=== PATIENT | female | born 1935 | race Caucasian/White ===

== ENCOUNTER 2016-07-14 11:36 | Outpatient (RCR) | payer MEDICARE ==
--- OUTSIDE RECORDS SUMMARY | 2016-05-12 11:05 | XMS REPORT | Continuity of Care Document ---
Author Author [facility] Organization [facility] Address Unknown Phone Unavailable Allergies Active Description Code Type Severity Reaction Onset Reported/Identified Relationship to Patient Clinical Status Yes benazepril [id number] Drug Allergy Unknown N/A 12/21/2011 Medications Problems Date Dx Coded Attending Type Code Diagnosis Diagnosed By 12/25/2011 Ot 174.4 12/25/2011 Ot 196.3 12/25/2011 Ot 250.00 12/25/2011 Ot 425.4 12/25/2011 Ot V58.61 12/25/2011 Ot V58.69 04/12/2012 Ot 174.4 04/12/2012 Ot 196.3 04/12/2012 Ot 250.00 04/12/2012 Ot 425.4 04/12/2012 Ot V58.61 04/12/2012 Ot V58.69 04/12/2012 Ot V58.81 08/20/2012 Ot 174.4 08/20/2012 Ot 196.3 08/20/2012 Ot 250.00 08/20/2012 Ot 425.4 08/20/2012 Ot V58.61 08/20/2012 Ot V58.69 11/19/2012 ARIEL, BOBAN N Ot 174.4 11/19/2012 ARIEL, BOBAN N Ot 196.3 11/19/2012 ARIEL, BOBAN N Ot 250.00 11/19/2012 ARIEL, BOBAN N Ot 425.4 11/19/2012 ARIEL, BOBAN N Ot V58.61 11/19/2012 ARIEL, BOBAN N Ot V58.69 11/19/2012 ARIEL, BOBAN N Ot V58.81 02/20/2013 ARIEL, BOBAN N Ot 174.4 02/20/2013 ARIEL, BOBAN N Ot 196.3 02/20/2013 ARIEL, BOBAN N Ot 250.00 02/20/2013 ARIEL, BOBAN N Ot 425.4 02/20/2013 ARIEL, BOBAN N Ot V58.61 02/20/2013 ARIEL, BOBAN N Ot V58.69 02/20/2013 ARIEL, BOBAN N Ot V58.81 05/30/2013 ARIEL, BOBAN N Ot 174.4 05/30/2013 ARIEL, BOBAN N Ot 196.3 05/30/2013 ARIEL, BOBAN N Ot 250.00 05/30/2013 ARIEL, BOBAN N Ot 425.4 05/30/2013 ARIEL, BOBAN N Ot V58.61 05/30/2013 ARIEL, BOBAN N Ot V58.69 05/30/2013 ARIEL, BOBAN N Ot V58.81 10/02/2013 ARIEL, BOBAN N Ot 174.4 10/02/2013 ARIEL, BOBAN N Ot 196.3 10/02/2013 ARIEL, BOBAN N Ot 250.00 10/02/2013 ARIEL, BOBAN N Ot 425.4 10/02/2013 ARIEL, BOBAN N Ot V58.61 10/02/2013 ARIEL, BOBAN N Ot V58.69 10/02/2013 ARIEL, BOBAN N Ot V58.81 10/02/2013 ARIEL, BOBAN N Ot V58.83 02/20/2014 ARIEL, BOBAN N Ot 174.4 02/20/2014 ARIEL, BOBAN N Ot 196.3 02/20/2014 ARIEL, BOBAN N Ot 250.00 02/20/2014 ARIEL, BOBAN N Ot 425.4 02/20/2014 ARIEL, BOBAN N Ot V58.61 02/20/2014 ARIEL, BOBAN N Ot V58.69 02/20/2014 ARIEL, BOBAN N Ot V58.81 02/20/2014 ARIEL, BOBAN N Ot V58.83 03/11/2014 REAL CROCKER MODEL MAKING SUPERVISOR Ot 174.4 03/11/2014 REAL CROCKER MODEL MAKING SUPERVISOR Ot 196.3 03/11/2014 REAL CROCKER MODEL MAKING SUPERVISOR Ot 250.00 03/11/2014 REAL CROCKER MODEL MAKING SUPERVISOR Ot 425.4 03/11/2014 REAL CROCKER MODEL MAKING SUPERVISOR Ot V58.61 03/11/2014 REAL CROCKER MODEL MAKING SUPERVISOR Ot V58.69 03/11/2014 REAL CROCKER MODEL MAKING SUPERVISOR Ot V58.83 03/25/2014 ARIEL, BOBAN N Ot 174.4 03/25/2014 ARIEL, BOBAN N Ot 196.3 03/25/2014 ARIEL, BOBAN N Ot 250.00 03/25/2014 ARIEL, BOBAN N Ot 425.4 03/25/2014 ARIEL, BOBAN N Ot V58.61 03/25/2014 ARIEL, BOBAN N Ot V58.69 03/25/2014 ARIEL, BOBAN N Ot V58.83 03/25/2014 ARIEL, BOBAN N Ot 174.4 03/25/2014 ARIEL, BOBAN N Ot 196.3 03/25/2014 ARIEL, BOBAN N Ot 250.00 03/25/2014 ARIEL, BOBAN N Ot 425.4 03/25/2014 ARIEL, BOBAN N Ot V58.61 03/25/2014 ARIEL, BOBAN N Ot V58.69 03/25/2014 ARIEL, BOBAN N Ot V58.83 03/26/2014 ARIEL, BOBAN N Ot 174.4 03/26/2014 ARIEL, BOBAN N Ot 196.3 03/26/2014 ARIEL, BOBAN N Ot 250.00 03/26/2014 ARIEL, BOBAN N Ot 425.4 03/26/2014 ARIEL, BOBAN N Ot V58.61 03/26/2014 ARIEL, BOBAN N Ot V58.69 03/26/2014 ARIEL, BOBAN N Ot V58.83 03/26/2014 ARIEL, BOBAN N Ot 174.4 03/26/2014 ARIEL, BOBAN N Ot 196.3 03/26/2014 ARIEL, BOBAN N Ot 250.00 03/26/2014 ARIEL, BOBAN N Ot 425.4 03/26/2014 ARIEL, BOBAN N Ot V58.61 03/26/2014 ARIEL, BOBAN N Ot V58.69 03/26/2014 ARIEL, BOBAN N Ot V58.81 03/26/2014 ARIEL, BOBAN N Ot 174.4 03/26/2014 ARIEL, BOBAN N Ot 196.3 03/26/2014 ARIEL, BOBAN N Ot 250.00 03/26/2014 ARIEL, BOBAN N Ot 425.4 03/26/2014 ARIEL, BOBAN N Ot V58.61 03/26/2014 ARIEL, BOBAN N Ot V58.69 03/26/2014 ARIEL, BOBAN N Ot V58.81 05/16/2014 ARIEL, BOBAN N Ot 174.4 05/16/2014 ARIEL, BOBAN N Ot 196.3 05/16/2014 ARIEL, BOBAN N Ot 250.00 05/16/2014 ARIEL, BOBAN N Ot 425.4 05/16/2014 ARIEL, BOBAN N Ot V58.61 05/16/2014 ARIEL, BOBAN N Ot V58.69 05/16/2014 ARIEL, BOBAN N Ot V58.81 05/16/2014 ARIEL, BOBAN N Ot 174.4 05/16/2014 ARIEL, BOBAN N Ot 196.3 05/16/2014 ARIEL, BOBAN N Ot 250.00 05/16/2014 ARIEL, BOBAN N Ot 425.4 05/16/2014 ARIEL, BOBAN N Ot V58.61 05/16/2014 ARIEL, BOBAN N Ot V58.69 05/16/2014 ARIEL, BOBAN N Ot V58.81 06/23/2014 ARIEL, BOBAN N Ot 174.4 06/23/2014 ARIEL, BOBAN N Ot 196.3 06/23/2014 ARIEL, BOBAN N Ot 250.00 06/23/2014 ARIEL, BOBAN N Ot 425.4 06/23/2014 ARIEL, BOBAN N Ot V58.61 06/23/2014 ARIEL, BOBAN N Ot V58.69 06/23/2014 ARIEL, BOBAN N Ot V58.81 07/29/2014 ARIEL, BOBAN N Ot 174.4 07/29/2014 ARIEL, BOBAN N Ot 196.3 07/29/2014 ARIEL, BOBAN N Ot 250.00 07/29/2014 ARIEL, BOBAN N Ot 425.4 07/29/2014 ARIEL, BOBAN N Ot V58.61 07/29/2014 ARIEL, BOBAN N Ot V58.69 07/29/2014 ARIEL, BOBAN N Ot V58.81 07/29/2014 ARIEL, BOBAN N Ot 174.4 07/29/2014 ARIEL, BOBAN N Ot 196.3 07/29/2014 ARIEL, BOBAN N Ot 250.00 07/29/2014 ARIEL, BOBAN N Ot 425.4 07/29/2014 ARIEL, BOBAN N Ot V58.61 07/29/2014 ARIEL, BOBAN N Ot V58.69 07/29/2014 ARIEL, BOBAN N Ot V58.81 07/29/2014 ARIEL, BOBAN N Ot 174.4 07/29/2014 ARIEL, BOBAN N Ot 196.3 07/29/2014 ARIEL, BOBAN N Ot 250.00 07/29/2014 ARIEL, BOBAN N Ot 425.4 07/29/2014 ARIEL, BOBAN N Ot V58.61 07/29/2014 ARIEL, BOBAN N Ot V58.69 07/29/2014 ARIEL, BOBAN N Ot V58.81 07/29/2014 ARIEL, BOBAN N Ot 174.4 07/29/2014 ARIEL, BOBAN N Ot 196.3 07/29/2014 ARIEL, BOBAN N Ot 250.00 07/29/2014 ARIEL, BOBAN N Ot 425.4 07/29/2014 ARIEL, BOBAN N Ot V58.61 07/29/2014 ARIEL, BOBAN N Ot V58.69 07/29/2014 ARIEL, BOBAN N Ot V58.81 07/30/2014 ARIEL, BOBAN N Ot 174.4 07/30/2014 ARIEL, BOBAN N Ot 196.3 07/30/2014 ARIEL, BOBAN N Ot 250.00 07/30/2014 ARIEL, BOBAN N Ot 425.4 07/30/2014 ARIEL, BOBAN N Ot V58.61 07/30/2014 ARIEL, BOBAN N Ot V58.69 07/30/2014 ARIEL, BOBAN N Ot V58.81 08/30/2014 REAL CROCKER S MODEL MAKING SUPERVISOR Ot 174.4 08/30/2014 CROCKERREAL Oliveira S MODEL MAKING SUPERVISOR Ot 196.3 08/30/2014 CROCKERREAL Oliveira S MODEL MAKING SUPERVISOR Ot 250.00 08/30/2014 CROCKERREAL Oliveira S MODEL MAKING SUPERVISOR Ot 425.4 08/30/2014 CROCKERREAL Oliveira S MODEL MAKING SUPERVISOR Ot V58.61 08/30/2014 CROCKERREAL Oliveira S MODEL MAKING SUPERVISOR Ot V58.69 09/04/2014 CROCKERREAL Oliveira S MODEL MAKING SUPERVISOR Ot 174.4 09/04/2014 CROCKERREAL S MODEL MAKING SUPERVISOR Ot 196.3 09/04/2014 CROCKERREAL S MODEL MAKING SUPERVISOR Ot 250.00 09/04/2014 CROCKERREAL S MODEL MAKING SUPERVISOR Ot 425.4 09/04/2014 CROCKERREAL S MODEL MAKING SUPERVISOR Ot V58.61 09/04/2014 CROCKERREAL Oliveira S MODEL MAKING SUPERVISOR Ot V58.69 09/23/2014 ARIEL, BOBAN N Ot 174.4 09/23/2014 ARIEL, BOBAN N Ot 196.3 09/23/2014 ARIEL, BOBAN N Ot 250.00 09/23/2014 ARIEL, BOBAN N Ot 425.4 09/23/2014 ARIEL, BOBAN N Ot V58.61 09/23/2014 ARIEL, BOBAN N Ot V58.69 09/23/2014 ARIEL, BOBAN N Ot V58.81 09/26/2014 ARIEL, BOBAN N Ot 174.4 09/26/2014 ARIEL, BOBAN N Ot 196.3 09/26/2014 ARIEL, BOBAN N Ot 250.00 09/26/2014 ARIEL, BOBAN N Ot 425.4 09/26/2014 ARIEL, BOBAN N Ot V58.61 09/26/2014 ARIEL, BOBAN N Ot V58.69 09/26/2014 ARIEL, BOBAN N Ot V58.81 10/03/2014 CROCKERREAL Oliveira S MODEL MAKING SUPERVISOR Ot 174.4 10/03/2014 CROCKERREAL Oliveira S MODEL MAKING SUPERVISOR Ot 196.3 10/03/2014 CROCKERREAL S MODEL MAKING SUPERVISOR Ot 250.00 10/03/2014 CROCKERREAL S MODEL MAKING SUPERVISOR Ot 425.4 10/03/2014 CROCKERREAL S MODEL MAKING SUPERVISOR Ot V58.61 10/03/2014 CROCKERREAL S MODEL MAKING SUPERVISOR Ot V58.69 10/03/2014 CROCKERREAL S MODEL MAKING SUPERVISOR Ot V58.81 10/10/2014 CROCKERREAL S MODEL MAKING SUPERVISOR Ot 174.4 10/10/2014 CROCKERREAL S MODEL MAKING SUPERVISOR Ot 196.3 10/10/2014 CROCKERREAL Oliveira MODEL MAKING SUPERVISOR Ot 250.00 10/10/2014 CROCKERREAL S MODEL MAKING SUPERVISOR Ot 425.4 10/10/2014 CROCKERREAL S MODEL MAKING SUPERVISOR Ot V58.61 10/10/2014 CROCKERREAL S MODEL MAKING SUPERVISOR Ot V58.69 10/10/2014 CROCKERREAL S MODEL MAKING SUPERVISOR Ot V58.81 10/22/2014 CROCKERREAL S MODEL MAKING SUPERVISOR Ot 174.4 10/22/2014 CROCKERREAL S MODEL MAKING SUPERVISOR Ot 196.3 10/22/2014 CROCKERREAL S MODEL MAKING SUPERVISOR Ot 250.00 10/22/2014 CROCKERREAL S MODEL MAKING SUPERVISOR Ot 425.4 10/22/2014 CROCKERREAL S MODEL MAKING SUPERVISOR Ot V58.61 10/22/2014 CROCKERREAL S MODEL MAKING SUPERVISOR Ot V58.69 10/22/2014 CROCKERREAL Oliveira S MODEL MAKING SUPERVISOR Ot V58.81 10/27/2014 ARIEL, BOBAN N Ot 174.4 10/27/2014 ARIEL, BOBAN N Ot 196.3 10/27/2014 ARIEL, BOBAN N Ot 250.00 10/27/2014 ARIEL, BOBAN N Ot 425.4 10/27/2014 ARIEL, BOBAN N Ot V58.61 10/27/2014 ARIEL, BOBAN N Ot V58.69 10/27/2014 ARIEL, BOBAN N Ot V58.81 11/15/2014 CROCKERREAL Oliveira S MODEL MAKING SUPERVISOR Ot 174.4 11/15/2014 CROCKERREAL Oliveira S MODEL MAKING SUPERVISOR Ot 196.3 11/15/2014 CROCKERREAL Oliveira S MODEL MAKING SUPERVISOR Ot 250.00 11/15/2014 CROCKERREAL S MODEL MAKING SUPERVISOR Ot 425.4 11/15/2014 CROCKERREAL S MODEL MAKING SUPERVISOR Ot V58.61 11/15/2014 CROCKERREAL S MODEL MAKING SUPERVISOR Ot V58.69 11/15/2014 CROCKERREAL S MODEL MAKING SUPERVISOR Ot V58.81 11/21/2014 CROCKERREAL S MODEL MAKING SUPERVISOR Ot 174.4 11/21/2014 CROCKERREAL S MODEL MAKING SUPERVISOR Ot 196.3 11/21/2014 CROCKER REAL S MODEL MAKING SUPERVISOR Ot 250.00 11/21/2014 CROCKER, HILAH S MODEL MAKING SUPERVISOR Ot 425.4 11/21/2014 REAL CROCKER MODEL MAKING SUPERVISOR Ot V58.61 11/21/2014 REAL CROCKER MODEL MAKING SUPERVISOR Ot V58.69 11/21/2014 REAL CROCKERP Ot V58.81 12/03/2014 CAITLIN GEORGE N Ot 174.4 12/03/2014 CAITLIN GEORGE N Ot 196.3 12/03/2014 CAITLIN GEORGE N Ot 250.00 12/03/2014 CAITLIN GEORGE N Ot 425.4 12/03/2014 CAITLIN GEORGE N Ot V58.61 12/03/2014 CAITLIN GEORGE N Ot V58.69 12/03/2014 CAITLIN GEORGE N Ot V58.81 12/10/2014 Ot 174.9 12/10/2014 Ot V72.83 12/10/2014 Ot V74.8 12/10/2014 Ot 174.9 12/10/2014 Ot 174.9 12/10/2014 Ot 250.00 12/10/2014 Ot 272.0 12/10/2014 Ot 274.9 12/10/2014 Ot 401.9 12/10/2014 Ot 414.01 12/10/2014 Ot 428.0 12/10/2014 Ot 716.90 12/10/2014 Ot V45.82 12/10/2014 Ot V58.61 12/10/2014 Ot V58.69 12/10/2014 Ot 174.9 12/10/2014 Ot 733.90 12/10/2014 Ot V07.4 12/10/2014 Ot V49.81 12/10/2014 Ot V76.51 12/10/2014 REAL CROCKER MODEL MAKING SUPERVISOR Ot 174.4 12/10/2014 OBIREAL MODEL MAKING SUPERVISOR Ot 174.4 12/10/2014 OBIREAL MODEL MAKING SUPERVISOR Ot 196.3 12/10/2014 OBIREAL MODEL MAKING SUPERVISOR Ot 585.3 12/10/2014 OBIREAL MODEL MAKING SUPERVISOR Ot 733.90 12/10/2014 OBIREAL MODEL MAKING SUPERVISOR Ot V45.71 12/10/2014 OBIREAL MODEL MAKING SUPERVISOR Ot V58.69 12/10/2014 OBIREAL MODEL MAKING SUPERVISOR Ot V86.0 12/10/2014 OBI HILAH S MODEL MAKING SUPERVISOR Ot 174.4 12/10/2014 CROCKERREAL S MODEL MAKING SUPERVISOR Ot 196.3 12/10/2014 CROCKERREAL Oliveira S MODEL MAKING SUPERVISOR Ot 285.9 12/10/2014 CROCKERREAL Oliveira S MODEL MAKING SUPERVISOR Ot 733.90 12/10/2014 CROCKERREAL S MODEL MAKING SUPERVISOR Ot V45.71 12/10/2014 OBIREAL S MODEL MAKING SUPERVISOR Ot V58.69 12/10/2014 CROCKERREAL Oliveira S MODEL MAKING SUPERVISOR Ot V86.0 12/10/2014 CROCKERREAL S MODEL MAKING SUPERVISOR Ot 174.4 12/10/2014 CROCKERREAL S MODEL MAKING SUPERVISOR Ot 196.3 12/10/2014 OBIREAL S MODEL MAKING SUPERVISOR Ot 250.00 12/10/2014 OBIREAL S MODEL MAKING SUPERVISOR Ot 425.4 12/10/2014 OBIREAL S MODEL MAKING SUPERVISOR Ot V58.61 12/10/2014 OBIREAL S MODEL MAKING SUPERVISOR Ot V58.69 12/10/2014 OBIREAL S MODEL MAKING SUPERVISOR Ot V58.83 12/10/2014 CROCKERREAL Oliveira S MODEL MAKING SUPERVISOR Ot 174.4 12/10/2014 CROCKERMEIR S MODEL MAKING SUPERVISOR Ot 196.3 12/10/2014 CROCKERREAL Oliveira S MODEL MAKING SUPERVISOR Ot 250.00 12/10/2014 CROCKERREAL Oliveira S MODEL MAKING SUPERVISOR Ot 425.4 12/10/2014 CROCKERREAL S MODEL MAKING SUPERVISOR Ot V58.61 12/10/2014 OBIREAL S MODEL MAKING SUPERVISOR Ot V58.69 12/10/2014 CROCKERREAL S MODEL MAKING SUPERVISOR Ot 174.4 12/10/2014 CROCKERMEIR S MODEL MAKING SUPERVISOR Ot 196.3 12/10/2014 CROCKERMEIR S MODEL MAKING SUPERVISOR Ot 250.00 12/10/2014 OBIMEIR S MODEL MAKING SUPERVISOR Ot 425.4 12/10/2014 OBIREAL S MODEL MAKING SUPERVISOR Ot V58.61 12/10/2014 CROCKERMEIR S MODEL MAKING SUPERVISOR Ot V58.69 12/10/2014 OBIREAL S MODEL MAKING SUPERVISOR Ot V58.81 12/10/2014 OBI MEIR S MODEL MAKING SUPERVISOR Ot 174.4 12/10/2014 OBIMEIR S MODEL MAKING SUPERVISOR Ot 196.3 12/10/2014 REAL CROCKER MODEL MAKING SUPERVISOR Ot 250.00 12/10/2014 REAL CROCKER MODEL MAKING SUPERVISOR Ot 425.4 12/10/2014 REAL CROCKER S MODEL MAKING SUPERVISOR Ot V58.61 12/10/2014 CROCKERREAL Oliveira S MODEL MAKING SUPERVISOR Ot V58.69 12/10/2014 REAL CROCKER MODEL MAKING SUPERVISOR Ot V58.81 12/10/2014 ARIEL, BOBAN N Ot 174.4 12/10/2014 ARIEL, BOBAN N Ot 196.3 12/10/2014 ARIEL, BOBAN N Ot 250.00 12/10/2014 ARIEL, BOBAN N Ot 425.4 12/10/2014 ARIEL, BOBAN N Ot V58.61 12/10/2014 ARIEL, BOBAN N Ot V58.69 12/10/2014 ARIEL, BOBAN N Ot V58.81 12/18/2014 ARIEL, BOBAN N Ot 174.4 12/18/2014 ARIEL, BOBAN N Ot 196.3 12/18/2014 ARIEL, BOBAN N Ot 250.00 12/18/2014 ARIEL, BOBAN N Ot 425.4 12/18/2014 ARIEL, BOBAN N Ot V58.61 12/18/2014 ARIEL, BOBAN N Ot V58.69 12/18/2014 ARIEL, BOBAN N Ot V58.81 02/17/2015 ARIEL, BOBAN N Ot 174.4 02/17/2015 ARIEL, BOBAN N Ot 196.3 02/17/2015 ARIEL, BOBAN N Ot 250.00 02/17/2015 ARIEL, BOBAN N Ot 425.4 02/17/2015 ARIEL, BOBAN N Ot V58.61 02/17/2015 ARIEL, BOBAN N Ot V58.69 02/17/2015 ARIEL, BOBAN N Ot V58.81 03/07/2015 ARIEL, BOBAN N Ot C50.419 03/07/2015 ARIEL, BOBAN N Ot Z79.01 03/07/2015 ARIEL, BOBAN N Ot Z79.899 03/12/2015 ARIEL, BOBAN N Ot C50.419 03/12/2015 ARIEL, BOBAN N Ot Z79.01 03/12/2015 CAITLIN GEORGE Ot Z79.899 04/14/2015 CAITLIN GEORGE Ot C50.419 04/14/2015 CAITLIN GEORGE Ot Z45.2 04/14/2015 CAITLIN GEORGE Ot Z79.01 04/14/2015 CAITLIN GEORGE Ot Z79.899 05/29/2015 Ot 250.00 05/29/2015 Ot 272.4 05/29/2015 Ot 402.90 05/29/2015 Ot 425.4 05/29/2015 Ot 426.3 05/29/2015 Ot 427.31 05/29/2015 Ot 715.36 05/29/2015 Ot 717.3 05/29/2015 Ot 793.1 05/29/2015 Ot V58.69 05/29/2015 Ot V72.81 05/29/2015 Ot V72.83 05/29/2015 CAITLIN GEORGE Ot C50.419 05/29/2015 CAITLIN GEORGE Ot Z79.01 05/29/2015 CAITLIN GEORGE Ot Z79.899 05/29/2015 Ot 174.9 05/29/2015 Ot V72.83 05/29/2015 Ot V74.8 05/29/2015 Ot 174.9 05/29/2015 Ot 174.9 05/29/2015 Ot 250.00 05/29/2015 Ot 272.0 05/29/2015 Ot 274.9 05/29/2015 Ot 401.9 05/29/2015 Ot 414.01 05/29/2015 Ot 428.0 05/29/2015 Ot 716.90 05/29/2015 Ot V45.82 05/29/2015 Ot V58.61 05/29/2015 Ot V58.69 05/29/2015 Ot 174.9 05/29/2015 Ot 733.90 05/29/2015 Ot V07.4 05/29/2015 Ot V49.81 05/29/2015 Ot V76.51 05/29/2015 REAL CROCKER MODEL MAKING SUPERVISOR Ot 174.4 05/29/2015 REAL CROCKER MODEL MAKING SUPERVISOR Ot 174.4 05/29/2015 REAL CROCKER MODEL MAKING SUPERVISOR Ot 196.3 05/29/2015 REAL CROCKER MODEL MAKING SUPERVISOR Ot 585.3 05/29/2015 REAL CROCKER S MODEL MAKING SUPERVISOR Ot 733.90 05/29/2015 CROCKERREAL Oliveira S MODEL MAKING SUPERVISOR Ot V45.71 05/29/2015 CROCKERREAL S MODEL MAKING SUPERVISOR Ot V58.69 05/29/2015 CROCKERREAL Oliveira S MODEL MAKING SUPERVISOR Ot V86.0 05/29/2015 CROCKERREAL S MODEL MAKING SUPERVISOR Ot 174.4 05/29/2015 CROCKERREAL S MODEL MAKING SUPERVISOR Ot 196.3 05/29/2015 CROCKERREAL S MODEL MAKING SUPERVISOR Ot 285.9 05/29/2015 CROCKERREAL S MODEL MAKING SUPERVISOR Ot 733.90 05/29/2015 CROCKERREAL Oliveira S MODEL MAKING SUPERVISOR Ot V45.71 05/29/2015 CROCKERREAL Oliveira S MODEL MAKING SUPERVISOR Ot V58.69 05/29/2015 CROCKERREAL Oliveira S MODEL MAKING SUPERVISOR Ot V86.0 05/29/2015 CROCKERREAL Oliveira S MODEL MAKING SUPERVISOR Ot 174.4 05/29/2015 CROCKERREAL Oliveira S MODEL MAKING SUPERVISOR Ot 196.3 05/29/2015 CROCKERREAL Oliveira S MODEL MAKING SUPERVISOR Ot 250.00 05/29/2015 CROCKERREAL Oliveira S MODEL MAKING SUPERVISOR Ot 425.4 05/29/2015 CROCKERREAL Oliveira S MODEL MAKING SUPERVISOR Ot V58.61 05/29/2015 CROCKERREAL S MODEL MAKING SUPERVISOR Ot V58.69 05/29/2015 CROCKERREAL S MODEL MAKING SUPERVISOR Ot V58.83 05/29/2015 CROCKERREAL Oliveira S MODEL MAKING SUPERVISOR Ot 174.4 05/29/2015 CROCKERREAL Oliveira S MODEL MAKING SUPERVISOR Ot 196.3 05/29/2015 CROCKER, HIL S MODEL MAKING SUPERVISOR Ot 250.00 05/29/2015 CROCKERMEIR S MODEL MAKING SUPERVISOR Ot 425.4 05/29/[address] [facility] S MODEL MAKING SUPERVISOR Ot V58.61 05/29/2015 CROCKERMEIR S MODEL MAKING SUPERVISOR Ot V58.69 05/29/2015 CROCKERMEIR S MODEL MAKING SUPERVISOR Ot 174.4 05/29/2015 CROCKERREAL S MODEL MAKING SUPERVISOR Ot 196.3 05/29/2015 CROCKER, MEIR S MODEL MAKING SUPERVISOR Ot 250.00 05/29/2015 CROCKER, MEIR S MODEL MAKING SUPERVISOR Ot 425.4 05/29/2015 CROCKER, HILAH S MODEL MAKING SUPERVISOR Ot V58.61 05/29/2015 REAL CROCKER MODEL MAKING SUPERVISOR Ot V58.69 05/29/2015 REAL CROCKER MODEL MAKING SUPERVISOR Ot V58.81 05/29/2015 REAL CROCKER MODEL MAKING SUPERVISOR Ot 174.4 05/29/2015 REAL CROCKER MODEL MAKING SUPERVISOR Ot 196.3 05/29/2015 REAL CROCKER MODEL MAKING SUPERVISOR Ot 250.00 05/29/2015 REAL CROCKER MODEL MAKING SUPERVISOR Ot 425.4 05/29/2015 REAL CROCKER MODEL MAKING SUPERVISOR Ot V58.61 05/29/2015 REAL CROCKER MODEL MAKING SUPERVISOR Ot V58.69 05/29/2015 REAL CROCKER MODEL MAKING SUPERVISOR Ot V58.81 05/29/2015 ARIEL, BOBAN N Ot C50.419 05/29/2015 ARIEL, BOBAN N Ot Z79.01 05/29/2015 ARIEL, BOBAN N Ot Z79.899 06/12/2015 ARIEL BOBAN N Ot C50.419 06/12/2015 ARIEL, BOBAN N Ot Z79.01 06/12/2015 ARIEL, BOBAN N Ot Z79.899 06/12/2015 ARIEL BOBAN N Ot C50.419 06/12/2015 ARIEL, BOBAN N Ot Z79.01 06/12/2015 ARIEL, BOBAN N Ot Z79.899 Procedures Results Encounters ACCT No. Visit Date/Time Discharge Status Pt. Type Provider Facility Loc./Unit Complaint [id number] 03/03/2015 09:03:00 2015 00:01:00 DIS Outpatient CAITLIN GEORGE N [facility] ON[facility] [id number] 12/02/2014 15:00:00 2014 00:01:00 DIS Outpatient ARIELCAITLIN N [facility] ONC [id number] 10/21/2014 12:41:00 2014 00:01:00 DIS Outpatient SILVIA GEORGENAM N [facility] ONC [id number] 10/21/2014 12:42:00 2014 23:59:59 CLS Outpatient REAL CROCKER MODEL MAKING SUPERVISOR [facility] ONC [id number] 09/09/2014 10:51:00 2014 23:59:59 CLS Outpatient REAL CROCKER MODEL MAKING SUPERVISOR [facility] ONC [id number] 07/29/2014 11:02:00 2014 23:59:59 CLS Outpatient REAL CROCKER S MODEL MAKING SUPERVISOR [facility] ONC [id number] 05/09/2014 12:00:00 2014 00:01:00 DIS Outpatient CAITLIN GEORGE [facility] ONC [id number] 12/31/2013 14:05:00 2013 00:01:00 DIS Outpatient CAITLIN GEORGE [facility] ONC [id number] 02/11/2014 13:22:00 2013 23:59:59 CLS Outpatient REAL CROCKER S MODEL MAKING SUPERVISOR [facility] ONC [id number] 08/15/2013 12:48:00 2013 00:01:00 DIS Outpatient CAITLIN GEORGE [facility] ONC [id number] 08/15/2013 12:48:00 2013 23:59:59 CLS Outpatient REAL CROCKER MODEL MAKING SUPERVISOR [facility] ONC [id number] 05/23/2013 10:44:00 2013 00:01:00 DIS Outpatient CAITLIN GEORGE [facility] ONC [id number] 03/01/2013 10:48:00 2012 23:59:59 CLS Outpatient REAL CROCKER S MODEL MAKING SUPERVISOR [facility] ONC [id number] 01/10/2013 13:38:00 2012 00:01:00 DIS Outpatient CAITLIN GEORGE [facility] ONC [id number] 10/05/2012 13:51:00 2012 00:01:00 DIS Outpatient CAITLIN GEORGE [facility] ON[facility] [id number] 08/21/2012 13:12:00 2012 23:59:59 CLS Outpatient REAL CROCKER [facility] ONC [id number] 04/15/2015 00:08:00 PEN Preadmit CAITLIN GEORGE [facility] ONC [id number] 12/10/2014 15:19:00 Document Registration [id number] 12/10/2014 15:19:00 Document Registration [id number] 04/12/2012 13:58:00 Document Registration [id number] 02/25/2012 08:34:00 Document Registration [id number] 12/24/2011 05:55:00 Document Registration [id number] 12/21/2011 10:21:00 Document Registration [id number] 12/20/2011 13:00:00 Document Registration [id number] 06/16/2005 15:00:00 Document Registration
[2016-06-16 09:43] LABS: BASOPHILS % (AUTO) 1 % (0-10); EOSINOPHILS # (AUTO) 0.3 10^3/uL (0.0-0.3); EOSINOPHILS % (AUTO) 4 % (0-10); LYMPHOCYTES # (AUTO) 1.4 X 10^3 (1.0-4.0); LYMPHOCYTES % (AUTO) 18 % (12-44); MEAN CORPUSCULAR HEMOGLOBIN 28 PG (25-34); MEAN CORPUSCULAR HGB CONC 33 G/DL (32-36); MEAN CORPUSCULAR VOLUME 87 FL (80-99); MEAN PLATELET VOLUME 11.5 FL (7.4-10.4); MONOCYTES # (AUTO) 0.4 X 10^3 (0.0-1.0); MONOCYTES % (AUTO) 5 % (0-12); NEUTROPHILS # (AUTO) 5.6 X 10^3 (1.8-7.8); NEUTROPHILS % (AUTO) 73 % (42-75); PLATELET COUNT 166 10^3/uL (130-400); RED BLOOD COUNT 4.13 10^6/uL (4.35-5.85); RED CELL DISTRIBUTION WIDTH 15.5 % (10.0-14.5); WHITE BLOOD COUNT 7.7 10^3/uL (4.3-11.0)
[2016-06-16 10:08] LABS: ALBUMIN 3.9 G/DL (3.2-4.5); BILIRUBIN,TOTAL 0.5 MG/DL (0.1-1.0); CALCIUM 9.4 MG/DL (8.5-10.1); CREATININE SERUM 1.3 MG/DL (0.60-1.30); TOTAL PROTEIN 6.7 G/DL (6.4-8.2)
[~2016-07-14 11:36] MED LIST: ASP81TEC PO; CARV3.122 PO; FENO54TA PO; FURO40TA4 PO; GLIM1TAB PO; HYDR-3583 PO; LOSA50TA6 PO; MULT-856 PO; OMG1KC PO; POTA10CA43 PO; SIMV40TA4 PO; SITA1TBM PO; WARF4TAB PO
== END 2016-08-10 | disposition home or self-care (01) ==
LOC: ONC 11:36
PROVIDERS: ATTEND Internal Medicine Hematology & Oncology
DX: Z08 Encounter for follow-up examination after completed treatment for malignant neoplasm (principal); Z85.3 Personal history of malignant neoplasm of breast; M85.80 Other specified disorders of bone density and structure, unspecified site; I13.0 Hypertensive heart and chronic kidney disease with heart failure and stage 1 through stage 4 chronic kidney disease, or unspecified chronic kidney disease; I50.9 Heart failure, unspecified; N18.3 Chronic kidney disease, stage 3 (moderate); E11.22 Type 2 diabetes mellitus with diabetic chronic kidney disease; I25.10 Atherosclerotic heart disease of native coronary artery without angina pectoris; E78.00 Pure hypercholesterolemia, unspecified; E66.01 Morbid (severe) obesity due to excess calories; Z68.34 Body mass index [BMI] 34.0-34.9, adult; Z45.2 Encounter for adjustment and management of vascular access device; Z79.01 Long term (current) use of anticoagulants; Z79.4 Long term (current) use of insulin
CPT/HCPCS: 36415; 80053; 82306; 85025; 96523; 99213

== ENCOUNTER 2016-11-03 12:24 | Outpatient (RCR) | payer MEDICARE ==
[2016-08-11 10:21] LABS: BASOPHILS # (AUTO) 0.1 10^3/uL (0.0-0.1); BASOPHILS % (AUTO) 1 % (0-10); EOSINOPHILS # (AUTO) 0.3 10^3/uL (0.0-0.3); EOSINOPHILS % (AUTO) 4 % (0-10); LYMPHOCYTES # (AUTO) 1.4 X 10^3 (1.0-4.0); LYMPHOCYTES % (AUTO) 16 % (12-44); MEAN CORPUSCULAR HEMOGLOBIN 28 PG (25-34); MEAN CORPUSCULAR HGB CONC 32 G/DL (32-36); MEAN CORPUSCULAR VOLUME 88 FL (80-99); MEAN PLATELET VOLUME 11.8 FL (7.4-10.4); MONOCYTES # (AUTO) 0.8 X 10^3 (0.0-1.0); MONOCYTES % (AUTO) 9 % (0-12); NEUTROPHILS # (AUTO) 5.9 X 10^3 (1.8-7.8); NEUTROPHILS % (AUTO) 70 % (42-75); PLATELET COUNT 152 10^3/uL (130-400); RED BLOOD COUNT 4.14 10^6/uL (4.35-5.85); RED CELL DISTRIBUTION WIDTH 15.6 % (10.0-14.5); WHITE BLOOD COUNT 8.4 10^3/uL (4.3-11.0)
[2016-08-11 10:41] LABS: ALBUMIN 4.1 G/DL (3.2-4.5); BILIRUBIN,TOTAL 0.6 MG/DL (0.1-1.0); CALCIUM 9.4 MG/DL (8.5-10.1); CREATININE SERUM 1.43 MG/DL (0.60-1.30); POTASSIUM 4.2 MMOL/L (3.6-5.0); TOTAL PROTEIN 7.2 G/DL (6.4-8.2)
[2016-11-03 13:20] LABS: BASOPHILS % (AUTO) 0 % (0-10); EOSINOPHILS # (AUTO) 0.3 10^3/uL (0.0-0.3); EOSINOPHILS % (AUTO) 4 % (0-10); LYMPHOCYTES # (AUTO) 1.2 X 10^3 (1.0-4.0); LYMPHOCYTES % (AUTO) 17 % (12-44); MEAN CORPUSCULAR HEMOGLOBIN 28 PG (25-34); MEAN CORPUSCULAR HGB CONC 32 G/DL (32-36); MEAN CORPUSCULAR VOLUME 88 FL (80-99); MEAN PLATELET VOLUME 11.3 FL (7.4-10.4); MONOCYTES # (AUTO) 0.8 X 10^3 (0.0-1.0); MONOCYTES % (AUTO) 11 % (0-12); NEUTROPHILS # (AUTO) 4.9 X 10^3 (1.8-7.8); NEUTROPHILS % (AUTO) 68 % (42-75); PLATELET COUNT 155 10^3/uL (130-400); RED BLOOD COUNT 3.79 10^6/uL (4.35-5.85); RED CELL DISTRIBUTION WIDTH 17.1 % (10.0-14.5); WHITE BLOOD COUNT 7.2 10^3/uL (4.3-11.0)
[2016-11-03 14:00] LABS: ALBUMIN 3.9 GM/DL (3.2-4.5); BILIRUBIN,TOTAL 0.8 MG/DL (0.1-1.0); CALCIUM 9.8 MG/DL (8.5-10.1); CREATININE SERUM 1.41 MG/DL (0.60-1.30); POTASSIUM 4.4 MMOL/L (3.6-5.0)
== END 2016-11-09 | disposition home or self-care (01) ==
LOC: ONC 12:24
PROVIDERS: ATTEND Internal Medicine Hematology & Oncology
DX: Z08 Encounter for follow-up examination after completed treatment for malignant neoplasm (principal); Z85.3 Personal history of malignant neoplasm of breast; Z79.899 Other long term (current) drug therapy; Z79.01 Long term (current) use of anticoagulants; Z45.2 Encounter for adjustment and management of vascular access device
CPT/HCPCS: 36591; 80053; 82728; 83540; 85025; 96523; 99213

== ENCOUNTER 2016-12-15 10:16 | Outpatient (RCR) | payer MEDICARE | END 2016-12-18 | disposition home or self-care (01) | LOC: ONC 10:16 | PROVIDERS: ATTEND Internal Medicine Hematology & Oncology | DX: Z08 Encounter for follow-up examination after completed treatment for malignant neoplasm (principal); Z85.3 Personal history of malignant neoplasm of breast; Z79.899 Other long term (current) drug therapy; Z79.01 Long term (current) use of anticoagulants; Z45.2 Encounter for adjustment and management of vascular access device | CPT/HCPCS: 96523 ==

== ENCOUNTER 2017-04-20 13:05 | Outpatient (RCR) | payer MEDICARE ==
[2017-04-20 13:36] LABS: BASOPHILS % (AUTO) 0 % (0-10); EOSINOPHILS # (AUTO) 0.3 10^3/uL (0.0-0.3); EOSINOPHILS % (AUTO) 4 % (0-10); HEMATOCRIT 33 % (35-52); HEMOGLOBIN 10.5 G/DL (11.5-16.0); LYMPHOCYTES # (AUTO) 1.2 X 10^3 (1.0-4.0); LYMPHOCYTES % (AUTO) 16 % (12-44); MEAN CORPUSCULAR HEMOGLOBIN 29 PG (25-34); MEAN CORPUSCULAR HGB CONC 32 G/DL (32-36); MEAN CORPUSCULAR VOLUME 88 FL (80-99); MEAN PLATELET VOLUME 11.9 FL (7.4-10.4); MONOCYTES # (AUTO) 0.7 X 10^3 (0.0-1.0); MONOCYTES % (AUTO) 10 % (0-12); NEUTROPHILS # (AUTO) 5.3 X 10^3 (1.8-7.8); NEUTROPHILS % (AUTO) 70 % (42-75); PLATELET COUNT 151 10^3/uL (130-400); RED BLOOD COUNT 3.68 10^6/uL (4.35-5.85); RED CELL DISTRIBUTION WIDTH 16.4 % (10.0-14.5); WHITE BLOOD COUNT 7.6 10^3/uL (4.3-11.0)
[2017-04-20 14:06] LABS: ALBUMIN 3.6 GM/DL (3.2-4.5); BILIRUBIN,TOTAL 0.6 MG/DL (0.1-1.0); CALCIUM 9.4 MG/DL (8.5-10.1); CREATININE SERUM 1.52 MG/DL (0.60-1.30); POTASSIUM 4.6 MMOL/L (3.6-5.0)
== END 2017-04-26 | disposition home or self-care (01) ==
LOC: ONC 13:05
PROVIDERS: ATTEND Internal Medicine Hematology & Oncology
DX: Z08 Encounter for follow-up examination after completed treatment for malignant neoplasm (principal); Z85.3 Personal history of malignant neoplasm of breast; Z79.899 Other long term (current) drug therapy; Z79.01 Long term (current) use of anticoagulants; Z45.2 Encounter for adjustment and management of vascular access device
CPT/HCPCS: 36591; 80053; 85025; 96523

== ENCOUNTER 2017-06-01 09:45 | Outpatient (RCR) | payer MEDICARE | END 2017-08-30 | disposition home or self-care (01) | LOC: ONC 09:45 | PROVIDERS: ATTEND Internal Medicine Hematology & Oncology | DX: Z08 Encounter for follow-up examination after completed treatment for malignant neoplasm (principal); Z85.3 Personal history of malignant neoplasm of breast; Z79.899 Other long term (current) drug therapy; Z79.01 Long term (current) use of anticoagulants; Z45.2 Encounter for adjustment and management of vascular access device | CPT/HCPCS: 96523 ==

== ENCOUNTER 2017-11-16 09:56 | Outpatient (RCR) | payer MEDICARE ==
[2017-11-16 10:29] LABS: BASOPHILS % (AUTO) 1 % (0-10); EOSINOPHILS # (AUTO) 0.4 10^3/uL (0.0-0.3); EOSINOPHILS % (AUTO) 6 % (0-10); HEMATOCRIT 30 % (35-52); HEMOGLOBIN 9.5 G/DL (11.5-16.0); LYMPHOCYTES # (AUTO) 1.1 X 10^3 (1.0-4.0); LYMPHOCYTES % (AUTO) 17 % (12-44); MEAN CORPUSCULAR HEMOGLOBIN 29 PG (25-34); MEAN CORPUSCULAR HGB CONC 32 G/DL (32-36); MEAN CORPUSCULAR VOLUME 90 FL (80-99); MEAN PLATELET VOLUME 11.5 FL (7.4-10.4); MONOCYTES # (AUTO) 0.6 X 10^3 (0.0-1.0); MONOCYTES % (AUTO) 8 % (0-12); NEUTROPHILS # (AUTO) 4.7 X 10^3 (1.8-7.8); NEUTROPHILS % (AUTO) 68 % (42-75); PLATELET COUNT 165 10^3/uL (130-400); RED BLOOD COUNT 3.33 10^6/uL (4.35-5.85); RED CELL DISTRIBUTION WIDTH 16.5 % (10.0-14.5); WHITE BLOOD COUNT 6.9 10^3/uL (4.3-11.0)
[2017-11-16 10:48] LABS: ALBUMIN 3.9 GM/DL (3.2-4.5); BILIRUBIN,TOTAL 0.6 MG/DL (0.1-1.0); CALCIUM 9.3 MG/DL (8.5-10.1); CREATININE SERUM 1.65 MG/DL (0.60-1.30); POTASSIUM 3.8 MMOL/L (3.6-5.0); TOTAL PROTEIN 6.9 GM/DL (6.4-8.2)
== END 2017-11-18 | disposition home or self-care (01) ==
LOC: ONC 09:56
PROVIDERS: ATTEND Internal Medicine Hematology & Oncology
DX: C50.412 Malignant neoplasm of upper-outer quadrant of left female breast (principal); D64.9 Anemia, unspecified; M85.80 Other specified disorders of bone density and structure, unspecified site; E11.9 Type 2 diabetes mellitus without complications; I13.0 Hypertensive heart and chronic kidney disease with heart failure and stage 1 through stage 4 chronic kidney disease, or unspecified chronic kidney disease; I50.9 Heart failure, unspecified; N18.3 Chronic kidney disease, stage 3 (moderate); I25.10 Atherosclerotic heart disease of native coronary artery without angina pectoris; Z17.0 Estrogen receptor positive status [ER+]; Z79.01 Long term (current) use of anticoagulants; Z79.4 Long term (current) use of insulin; Z79.82 Long term (current) use of aspirin; Z79.811 Long term (current) use of aromatase inhibitors; Z79.899 Other long term (current) drug therapy; Z90.12 Acquired absence of left breast and nipple; Z89.511 Acquired absence of right leg below knee
CPT/HCPCS: 36591; 80053; 85025

== ENCOUNTER → 2018-03-29 | Outpatient (CLI) | payer MEDICARE ==
[~2018-03-29] VITALS: Ht 165.1 cm; Wt 104.3 kg
[~2018-03-29] MED LIST changes: +CATHETER FLUSH 10 ML SYR IV PRN; +REGADENOSON 0.4 MG/5 ML SYR (LEXISCAN) IV ONE
--- NOTE | 2018-03-30 08:13 | STRESS TEST ---
DATE OF SERVICE: 03/29/2018 LEXISCAN MYOVIEW STRESS TEST REPORT Baseline heart rate is 76. Baseline blood pressure is 153/61. Baseline EKG is sinus rhythm with no ischemic changes. In summary, the patient was injected with 10.64 mCi of technetium-99 Myoview and the resting images were obtained. Then, the patient received 0.4 mg of Lexiscan followed by 29.5 mCi of technetium-99 Myoview. Throughout the test, there were no EKG changes. The resting and stress images were reviewed and compared in the short axis, horizontal long axis and vertical long axis views. Review of the images showed good radiotracer uptake with mild decreased uptake at the basal to mid inferior wall, which is fixed. No significant reversible ischemia was noted. SSS is 4 and SDS is 0. TID value 1.09. On the gated images, the left ventricle appeared to be normal and inferior wall is brendan normally. Calculated ejection fraction is 58%. CONCLUSION: 1. The patient tolerated the Lexiscan well. 2. No significant ischemia or infarction on SPECT images. 3. Normal left ventricular size with normal contractility. Calculated ejection fraction is 58%. Job ID: [id number] DocumentID: [id number] Dictated Date: 03/30/2018 05:58:17 Paper Spooler Date: 03/30/2018 08:13:16 Dictated By: FAM OLIVER MD
== END ==
LOC: CARD 11:00
PROVIDERS: ATTEND Internal Medicine Cardiovascular Disease
DX: I11.0 Hypertensive heart disease with heart failure (principal); I50.9 Heart failure, unspecified; E78.00 Pure hypercholesterolemia, unspecified; M85.89 Other specified disorders of bone density and structure, multiple sites
CPT/HCPCS: 78452; 93017; 93225; 93226

== ENCOUNTER 2018-05-15 13:13 | Outpatient (RCR) | payer MEDICARE ==
[~2018-05-15 13:13] MED LIST changes: -CATHETER FLUSH 10 ML SYR IV PRN; -REGADENOSON 0.4 MG/5 ML SYR (LEXISCAN) IV ONE
[2018-05-15 13:43] LABS: BASOPHILS % (AUTO) 0 % (0-10); EOSINOPHILS # (AUTO) 0.3 10^3/uL (0.0-0.3); EOSINOPHILS % (AUTO) 4 % (0-10); HEMATOCRIT 28 % (35-52); HEMOGLOBIN 8.9 G/DL (11.5-16.0); LYMPHOCYTES # (AUTO) 1.2 X 10^3 (1.0-4.0); LYMPHOCYTES % (AUTO) 16 % (12-44); MEAN CORPUSCULAR HEMOGLOBIN 28 PG (25-34); MEAN CORPUSCULAR HGB CONC 32 G/DL (32-36); MEAN CORPUSCULAR VOLUME 90 FL (80-99); MEAN PLATELET VOLUME 11.4 FL (7.4-10.4); MONOCYTES # (AUTO) 0.6 X 10^3 (0.0-1.0); MONOCYTES % (AUTO) 8 % (0-12); NEUTROPHILS # (AUTO) 5.2 X 10^3 (1.8-7.8); NEUTROPHILS % (AUTO) 71 % (42-75); PLATELET COUNT 179 10^3/uL (130-400); RED CELL DISTRIBUTION WIDTH 17.4 % (10.0-14.5); WHITE BLOOD COUNT 7.3 10^3/uL (4.3-11.0)
[2018-05-15 13:57] LABS: RETICULOCYTE % 1.55 % (0.50-2.40)
[2018-05-15 14:01] LABS: CREATININE SERUM 1.55 MG/DL (0.60-1.30); POTASSIUM 3.9 MMOL/L (3.6-5.0)
[2018-05-15 14:02] LABS: ALBUMIN 3.6 GM/DL (3.2-4.5); BILIRUBIN,TOTAL 0.5 MG/DL (0.1-1.0); CALCIUM 9.9 MG/DL (8.5-10.1); TOTAL PROTEIN 6.4 GM/DL (6.4-8.2)
[2018-05-15 14:54] LABS: RETICULOCYTE % 1.54 % (0.50-2.40)
[2018-05-15 15:03] LABS: INR 2.1 (0.8-1.4)
== END 2018-08-13 | disposition home or self-care (01) ==
LOC: ONC 13:13
PROVIDERS: ATTEND Internal Medicine Hematology & Oncology
DX: C50.412 Malignant neoplasm of upper-outer quadrant of left female breast (principal); D64.9 Anemia, unspecified; M85.80 Other specified disorders of bone density and structure, unspecified site; E11.9 Type 2 diabetes mellitus without complications; I13.0 Hypertensive heart and chronic kidney disease with heart failure and stage 1 through stage 4 chronic kidney disease, or unspecified chronic kidney disease; I50.9 Heart failure, unspecified; N18.3 Chronic kidney disease, stage 3 (moderate); I25.10 Atherosclerotic heart disease of native coronary artery without angina pectoris; Z17.0 Estrogen receptor positive status [ER+]; Z79.01 Long term (current) use of anticoagulants; Z79.4 Long term (current) use of insulin; Z79.82 Long term (current) use of aspirin; Z79.811 Long term (current) use of aromatase inhibitors; Z79.899 Other long term (current) drug therapy; Z90.12 Acquired absence of left breast and nipple; Z89.511 Acquired absence of right leg below knee
CPT/HCPCS: 36415; 36591; 80053; 82668; 82728; 83540; 85025; 85045; 85610; 99213

== ENCOUNTER 2018-10-16 18:59 | Inpatient (IN) | payer MEDICARE | END 2018-10-17 10:36 | disposition EMF | LOC: ER 18:59 → ICU 20:55 ==